=== PATIENT | male | born 1990 | race Hispanic/Latino ===

== ENCOUNTER 2017-08-29 07:30 | Emergency (ER) | payer OTHER ==
[2017-08-29] MEDS ORDERED: VENTAER IN (07:48)
[2017-08-29] MEDS ORDERED: ZITHTAB PO (08:56)
[2017-08-29 09:03] VITALS: BP 157/89
--- NOTE | 2017-08-29 09:03 | REP ---
CHEST, TWO VIEWS: There is no evidence of acute infiltrate. No pleural effusion is seen. The heart is normal in size. The mediastinal silhouette is unremarkable. The visualized osseous structures are intact. IMPRESSION: No acute pulmonary disease. Signed by Smith Cano MD 09/01/2017 09:44 A
== END 2017-08-29 09:04 | disposition home or self-care (01) ==
LOC: M ED 07:30
DX: J40 Bronchitis, not specified as acute or chronic (principal); J45.909 Unspecified asthma, uncomplicated

== ENCOUNTER 2018-01-25 22:56 | Emergency (ER) | payer OTHER ==
[2018-01-26] MEDS: ALBUTEROL SULFATE 2.5 MG/0.5 ML INH NEB SOLN NEB ×2 (00:15)
[2018-01-26] MEDS: predniSONE 20 MG TAB PO ×2 (00:28)
[2018-01-26] MEDS: methylPREDNISolone INJ 125 MG/2 ML VIAL (J2930) IM ×2 (00:28)
== END 2018-01-26 00:58 | disposition home or self-care (01) ==
LOC: M ED 01-26 00:58
DX: J40 Bronchitis, not specified as acute or chronic (principal); J45.909 Unspecified asthma, uncomplicated
CPT/HCPCS: J2930